=== PATIENT | female | born 1965 | race Caucasian/White ===

== ENCOUNTER 2018-10-17 21:41 | Emergency (ER) | payer OTHER ==
[~2018-10-17] VITALS: Ht 160 cm; Wt 77.6 kg
[2018-10-18] MEDS ORDERED: ZOFRAN8 MG PO (01:40)
[2018-10-18] MEDS ORDERED: PEPCID40 MG PO (01:40)
== END 2018-10-18 02:22 | disposition home or self-care (01) ==
LOC: ER 21:41
DX: K29.70 Gastritis, unspecified, without bleeding (principal)